=== PATIENT | female | born 1950 | race Caucasian/White ===

== ENCOUNTER → 2020-12-08 | Outpatient (CLI) | payer OTHER ==
[~2020-12-08] MED LIST: FAMO40 PO; HYDPAM50 PO; METPRE4DP PO; Prednisone20 MG PO
== END | disposition home or self-care (01) ==
LOC: LAB SHORT 07:40 → LAB 07:40
DX: D22.121 Melanocytic nevi of left upper eyelid, including canthus (principal)
CPT/HCPCS: 88305

== ENCOUNTER 2021-03-18 06:14 | Day surgery (SDC) | payer MEDICARE ==
[~2021-03-18] VITALS: Ht 152.4 cm; Wt 83.7 kg
--- NOTE | 2021-03-18 06:37 | NUR ---
03/18/21 0637 RENETTA GAVIRIA TETRACAINE DROP INSERTED INTO R EYE AT 0627. PLEDGET INSERTED AT 0628 INTO R EYE AND EYE TAPED SHUT
== END 2021-03-18 08:04 | disposition home or self-care (01) ==
LOC: ORSCSDS 06:14
PROVIDERS: Ophthalmology
PROC: 08RJ3JZ Replacement of Right Lens with Synthetic Substitute, Percutaneous Approach (ICD-10-PCS; principal; 2021-03-18 07:30)
DX: H25.11 Age-related nuclear cataract, right eye (principal); E66.9 Obesity, unspecified; Z68.36 Body mass index [BMI] 36.0-36.9, adult
CPT/HCPCS: J2001; J2250; J2405; J3010; J3301; J7040; V2632

== ENCOUNTER 2021-04-08 06:11 | Day surgery (SDC) | payer MEDICARE ==
[~2021-04-08] VITALS: Ht 177.8 cm; Wt 81.4 kg
--- NOTE | 2021-04-08 06:58 | NUR ---
04/08/21 0658 Skyla Alford 0625 TETRACAINE AND PLEDGET PLACED IN LEFT EYE BY [facility]G
== END 2021-04-08 08:05 | disposition home or self-care (01) ==
LOC: ORSCSDS 06:11
PROVIDERS: Ophthalmology
PROC: 08RK3JZ Replacement of Left Lens with Synthetic Substitute, Percutaneous Approach (ICD-10-PCS; principal; 2021-04-08 07:30)
DX: H25.12 Age-related nuclear cataract, left eye (principal)
CPT/HCPCS: J2001; J2250; J3010; J3301; J7040; V2632